=== PATIENT | male | born 1960 | race Caucasian/White ===

== ENCOUNTER 2020-05-03 10:05 | Emergency (ER) | payer OTHER, MEDICAID ==
[~2020-05-03] VITALS: Ht 167.6 cm; Wt 41.7 kg
[2020-05-03 10:46] VITALS: Ht 167.6 cm; Wt 41.7 kg
[2020-05-03 12:18] VITALS: BP 128/78
== END 2020-05-03 12:18 | disposition home or self-care (01) ==
LOC: ED 10:05
DX: Z46.59 Encounter for fitting and adjustment of other gastrointestinal appliance and device (principal)
CPT/HCPCS: Q9967

== ENCOUNTER 2020-05-04 09:50 | Emergency (ER) | payer OTHER, MEDICAID ==
[~2020-05-04] VITALS: Ht 147.3 cm; Wt 50.3 kg
[2020-05-04 09:54] VITALS: Ht 147.3 cm; Wt 50.3 kg
[2020-05-04 14:33] VITALS: BP 122/73
== END 2020-05-04 14:33 | disposition home or self-care (01) ==
LOC: ED 09:50
DX: Z46.59 Encounter for fitting and adjustment of other gastrointestinal appliance and device (principal)